=== PATIENT | female | born 1995 | race African-American/Black ===

== ENCOUNTER 2022-08-30 18:24 | Inpatient (IN) | payer MEDICAID, OTHER ==
[~2022-08-30] VITALS: Ht 172.7 cm; Wt 85.7 kg
[2022-08-30 19:09] LABS: BASOPHILS % (AUTO) 0.8 % (0.0-2.0); EOSINOPHILS % (AUTO) 2.2 % (1.0-6.0); HEMATOCRIT 36.7 % (36-46); HEMOGLOBIN 12.1 g/dL (12.0-16.0); LYMPHOCYTES # (AUTO) 1.9 K/uL (1.0-4.8); LYMPHOCYTES % (AUTO) 39.5 % (22.0-44.0); MEAN CORPUSCULAR HEMOGLOBIN 32.1 pg (26.0-34.0); MEAN CORPUSCULAR HGB CONC 33.1 G/dL (31.0-37.0); MEAN CORPUSCULAR VOLUME 97 fL (80-100); MONOCYTES # (AUTO) 0.4 K/uL (0.1-1.0); MONOCYTES % (AUTO) 7.5 % (2.0-9.0); NEUTROPHILS # (AUTO) 2.4 K/uL (1.8-7.7); PLATELET COUNT (AUTO) 220 K/uL (150-450); RED BLOOD CELL COUNT(AUTO) 3.78 MIL/uL (4.00-5.20); RED CELL DISTRIBUTION WIDTH 13.7 % (11.5-14.5)
[2022-08-30 19:30] LABS: ANION GAP 9 mmol/L (8-16); CALCIUM, TOTAL 9.4 mg/dL (8.8-10.5); CARBON DIOXIDE 24 mmol/L (22-29); CHLORIDE 106 mmol/L (98-107); CREATININE 0.79 mg/dL (0.60-1.30); GLUCOSE,RANDOM 81 mg/dL (70-110); POTASSIUM 4.1 mmol/L (3.5-5.1); SODIUM SERUM 139 mmol/L (136-145); UREA NITROGEN, BLOOD 11 mg/dL (7-18)
[2022-08-30 19:35] LABS: GLOMERULAR FILTR. RATE CALC > 60 mL/min (>60)
[2022-08-30 19:36] LABS: ALANINE AMINOTRANSFERASE 11 U/L (12-78); ALBUMIN 4.4 g/dL (3.4-5.0); ALKALINE PHOSPHATASE 68 U/L (46-116); ASPARTATE AMINOTRANSFERASE 11 U/L (15-37); BILIRUBIN,TOTAL 0.3 mg/dL (0.1-1.0); TOTAL PROTEIN, SERUM 8.2 g/dL (6.4-8.2)
[2022-08-30 20:02] LABS: AMPHET/METH SCREEN,URINE NEGATIVE (NEGATIVE); BARBITURATE SCREEN, URINE NEGATIVE (NEGATIVE); BENZODIAZEPINES SCREEN,URINE NEGATIVE (NEGATIVE); CANNABINOID SCREEN,URINE POSITIVE (NEGATIVE); COCAINE SCREEN,URINE NEGATIVE (NEGATIVE); METHADONE SCREEN, URINE NEGATIVE (NEGATIVE); OPIATE SCREEN,URINE NEGATIVE (NEGATIVE)
[2022-08-30 20:05] LABS: PHENCYCLIDINE SCREEN,URINE NEGATIVE (NEGATIVE)
[2022-08-30 20:49] LABS: COVID AG,FIA SOURCE NASAL SWAB
[2022-08-30] MEDS ORDERED: LORazepam 2 MG TABLET PO ONE (21:30)
[2022-08-30] MEDS ORDERED: LORazepam 2 MG TABLET PO PRN (21:45)
[2022-08-30] MEDS ORDERED: ZOLPIDEM TARTRATE 10 MG TABLET PO PRN (21:45)
[2022-08-30] MEDS ORDERED: HALOPERIDOL 5 MG TABLET PO PRN (21:45)
[2022-08-30 22:41] LABS: APPEARANCE,URINE HAZY (CLEAR); BILIRUBIN,URINE NEGATIVE (NEGATIVE); GLUCOSE, URINE (UA) NEGATIVE (NEGATIVE); KETONES,URINE TRACE mg/dL (NEGATIVE); LEUKOCYTE ESTERASE ,URINE LARGE (NEGATIVE); NITRATE,URINE NEGATIVE (NEGATIVE); OCCULT BLOOD,URINE NEGATIVE (NEGATIVE); PH,URINE 6.5 (5.0-8.0); PROTEIN,URINE TRACE mg/dL (NEGATIVE); SPECIFIC GRAVITIY, URINE 1.028 (1.003-1.030)
[2022-08-30 23:03] LABS: BACTERIA,URINE Moderate /HPF (None Seen); RBC,URINE 0-2 /HPF (0-2); SQUAMOUS EPITHELIAL CELL,UR Few /LPF (None Seen)
[2022-08-31 01:31] VITALS: BP 134/87
[2022-08-31 01:33] VITALS: BP 134/87
[2022-08-31 08:24] VITALS: BP 123/79
[2022-08-31] MEDS: SERTRALINE HCL 50 MG TABLET PO SCH (09:45)
[2022-08-31] MEDS ORDERED: MAG HYDROX/AL HYDROX/SIMETH ES 30 ML SUSPENSION UDCUP PO PRN (15:15)
[2022-08-31] MEDS ORDERED: ACETAMINOPHEN 325 MG TABLET PO PRN (15:15)
[2022-08-31] MEDS ORDERED: OMEPRAZOLE 20 MG CAPSULE PO PRN (15:15)
[2022-08-31] MEDS ORDERED: ONDANSETRON HCL 4 MG TABLET PO PRN (15:15)
[2022-08-31] MEDS ORDERED: LOPERAMIDE HCL 2 MG CAPSULE PO PRN (15:15)
[2022-08-31] MEDS ORDERED: BENZOCAINE/MENTHOL LOZENGE PO PRN (15:15)
[2022-08-31] MEDS ORDERED: MAGNESIUM HYDROXIDE SUSPENSION 30 ML UDCUP PO PRN (15:15)
[2022-08-31] MEDS ORDERED: BACITRACIN 28 GM OINTMENT TP PRN (15:15)
[2022-08-31] MEDS ORDERED: PETROLATUM,WHITE 28 GM JELLY TP PRN (15:15)
[2022-08-31] MEDS ORDERED: ALBUTEROL SULFATE HFA 90 MCG/PUFF 8 GM INHALER IH PRN (15:15)
[2022-08-31] MEDS ORDERED: CloNIDine HCL 0.1 MG TABLET PO PRN (15:15)
[2022-08-31] MEDS ORDERED: IBUPROFEN 600 MG TABLET PO PRN (15:15)
[2022-08-31] MEDS ORDERED: DOCUSATE SODIUM 100 MG CAPSULE PO PRN (15:15)
[2022-08-31] MEDS: CEPHALEXIN MONOHYDRATE 500 MG CAPSULE PO SCH (16:13)
[2022-08-31 20:32] VITALS: BP 100/60
[2022-09-01 08:12] VITALS: BP 129/78
[2022-09-01] MEDS: SERTRALINE HCL 50 MG TABLET PO SCH (09:32)
[2022-09-01] MEDS: CEPHALEXIN MONOHYDRATE 500 MG CAPSULE PO SCH ×2 (09:32→17:03)
[2022-09-01 20:27] VITALS: BP 109/71
[2022-09-02] MEDS: SERTRALINE HCL 50 MG TABLET PO SCH (08:13)
[2022-09-02] MEDS: CEPHALEXIN MONOHYDRATE 500 MG CAPSULE PO SCH ×2 (08:13→16:51)
[2022-09-02 08:27] VITALS: BP 109/73
[2022-09-02 20:09] VITALS: BP 110/73
[2022-09-03 04:12] VITALS: BP 118/78
[2022-09-03] MEDS: CEPHALEXIN MONOHYDRATE 500 MG CAPSULE PO SCH (08:30)
[2022-09-03] MEDS: SERTRALINE HCL 50 MG TABLET PO SCH (08:30)
[2022-09-03 09:02] VITALS: BP 106/66
[2022-09-03] MEDS ORDERED: CEPH-558 PO (12:02)
[2022-09-03] MEDS ORDERED: SERT-158 PO (12:02)
[2022-09-04] MEDS ORDERED: SERT-439 PO (07:00)
== END 2022-09-03 14:19 | disposition home or self-care (01) | DRG 751 ==
LOC: EMS 18:28 → B3A 08-31 00:24
PROVIDERS: ADMIT Psychiatry & Neurology Psychiatry; ATTEND Psychiatry & Neurology Psychiatry
DX: F33.2 Major depressive disorder, recurrent severe without psychotic features (principal); R45.851 Suicidal ideations; F41.9 Anxiety disorder, unspecified; G47.00 Insomnia, unspecified; Z20.822 Contact with and (suspected) exposure to COVID-19; K59.00 Constipation, unspecified; F12.90 Cannabis use, unspecified, uncomplicated; N39.0 Urinary tract infection, site not specified; Z79.899 Other long term (current) drug therapy
CPT/HCPCS: 80053; 81001; 84703; 85025; 87086; 87186; 99285; G0480